=== PATIENT | male | born 1995 | race Caucasian/White ===

== ENCOUNTER 2019-11-15 18:32 | Emergency (ER) | payer OTHER, SELFPAY ==
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
[2019-11-15 18:47] VITALS: BP 116/80; PULSE 127; RESP 20; TEMP 36.1; O2SAT 97
[2019-11-15 19:32] LABS: Basophils Percent Auto 0.3 % (0.2-1.2); Eosinophils Percent Auto 0.1 % (0-4.4); Hematocrit 46.1 % (42.0-52.0); Hemoglobin 16.9 g/dL (14.0-18.0); Immature Granulocyte Absolute 0.03 K/mm3 (0.00-0.031); Immature Granulocyte Percent A 0.3 % (0-0.5); Lymphocytes Absolute Auto 0.75 K/mm3 (0.9-3.2); Lymphocytes Percent Auto 7.1 % (18.3-44.2); Mean Corpuscular HGB Conc 36.7 g/dl (32-36); Mean Corpuscular Hemoglobin 34.1 pg (26-34); Mean Corpuscular Volume 93.1 fl (80-100); Mean Platelet Volume 9.6 fl (7.4-10.4); Monocytes Absolute Auto 0.3 K/mm3 (0.1-0.6); Monocytes Percent Auto 2.5 % (2.6-8.5); Neutrophils Absolute Auto 9.4 K/mm3 (1.3-6.7); Neutrophils Percent Auto 89.7 % (45.5-73.1); Platelet Count Result 365 k/mm3 (150-375); Red Blood Count 4.95 M/mm3 (4.6-6.20); Red Cell Distribution Width 11.3 % (11.5-14.5); White Blood Count 10.5 K/mm3 (4.5-10.0)
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
[2019-11-15 19:42] LABS: Prothrombin Time 13.3 Seconds (11.1-14.7)
[2019-11-15 19:43] LABS: Partial Thromboplastin Time 27.7 SECONDS (22.3-36.8)
[2019-11-15] MEDS: FAMOTIDINE 20 MG/2 ML VIAL IV PUSH (19:43)
[2019-11-15] MEDS: SODIUM CHLORIDE 0.9% IV 1,000 ML 999 ML IV CONT (19:43)
[2019-11-15] MEDS: ONDANSETRON INJ 4 MG/2 ML VIAL IV PUSH (19:43)
[2019-11-15] MEDS: methylPREDNISolone SOD SUCC 125 MG VIAL IV PUSH (19:43)
[2019-11-15 19:44] LABS: Alanine Aminotransferase 17 U/L (4-50); Albumin Level 4.8 g/dL (3.5-5.1); Alkaline Phosphatase 70 U/L (38-126); Anion Gap 13 mmol/L (8-16); Aspartate Amino Transferase 32 U/L (17-59); Bilirubin,Total 0.7 mg/dL (0.2-1.3); Blood Urea Nitrogen 17 mg/dL (9-20); Calcium 10.1 mg/dL (8.4-10.2); Carbon Dioxide 22 mmol/L (22-30); Chloride 104 mmol/L (98-107); Estimated CRCL calculation 106 ml/min; Estimated Glomerular Filt Rate > 60; Glucose 136 mg/dL (75-110); Potassium 4.4 mmol/L (3.4-5.0); Sodium 139 mmol/L (137-145)
[2019-11-15 20:41] VITALS: BP 127/87; PULSE 112; RESP 20; O2SAT 97
[2019-11-15 21:26] VITALS: BP 118/78; PULSE 90; RESP 18; O2SAT 98
== END 2019-11-15 21:30 | disposition home or self-care (01) ==
PROVIDERS: Emergency Medicine Emergency Medical Services; Emergency Provider Emergency Medicine
DX: S16.1XXA Strain of muscle, fascia and tendon at neck level, initial encounter (principal); S29.012A Strain of muscle and tendon of back wall of thorax, initial encounter; S39.012A Strain of muscle, fascia and tendon of lower back, initial encounter; F17.200 Nicotine dependence, unspecified, uncomplicated; V48.5XXA Car driver injured in noncollision transport accident in traffic accident, initial encounter
CPT/HCPCS: 36415; 71260; 72125; 74177; 80053; 85025; 85610; 85730; 96365; 96366; 96375; 99284; J0131; J2405; J2930; J7030; Q9967

== ENCOUNTER 2019-11-17 08:05 | Emergency (ER) | payer OTHER, SELFPAY ==
--- NOTE | 2019-11-17 08:10 | ED.GENADULT ---
HPI - General Adult General Chief complaint: Unspecified Stated complaint: n/v Time Seen by Provider: 11/17/19 08:10 Source: patient and EMS Mode of arrival: EMS Limitations: no limitations History of Present Illness HPI narrative: Patient is a 24-year-old male who presents for evaluation of nausea and vomiting. Patient reports he has a longstanding history of opiate addiction, states that he has been over 24 hours without use of any opiate medications, has had chills, diaphoresis, inability to tolerate oral intake over the past 24 hours. He states he typically uses Vicodin or other prescription medication. He denies abdominal pain. He reports he feels fatigued, very nauseous. Related Data Allergies Allergy/AdvReac Type Severity Reaction Status Date / Time Cat Dander Allergy Unknown Itching Uncoded 11/17/19 09:03 Dog Dander Allergy Unknown WHEEZING, Uncoded 11/17/19 09:03 EYES WATER Review of Systems Review of Systems: Narrative: CONSTITUTIONAL: Denies fever CARDIOVASCULAR: Denies chest pain RESPIRATORY: Denies cough or dyspnea. GASTROINTESTINAL: Denies abdominal pain, reports nausea and vomiting SKIN: Denies rash MUSCULOSKELETAL: Denies back pain NEUROLOGIC: Denies headache PMFSH Past Medical History Medical History Asthma Opiate abuse, continuous Surgical History Surgical History H/O adenoidectomy Social History Social History Smoking status: Current every day smoker Alcohol intake: unknown Substance use type: opiates Gender identity (if verbalized by the patient): Male Exam Narrative: Exam Narrative: GENERAL: Awake, alert, nauseated HEAD: Normocephalic, atraumatic. EYES: PERRLA and EOMI. ENT: Nares clear, no rhinorrhea or epistaxis. Mucous membranes moist. NECK: Supple. CHEST: No respiratory distress, breathing even and non labored HEART: Regular rate, sinus rhythm ABDOMEN:Non distended, non tender, dry heaving in room, no focal abd tenderness, no RLQ tenderness EXTREMITIES: Normal range of motion. No edema. SKIN: Warm, dry, no rash. NEURO:No focal deficits. Alert and oriented x3 Course Vital Signs Vital signs: Vital Signs Temperature 36.9 C 11/17/19 08:13 Pulse Rate 73 11/17/19 08:13 Respiratory Rate 18 11/17/19 08:13 Blood Pressure 110/87 11/17/19 08:13 Pulse Oximetry 98 11/17/19 08:13 Temperature 36.9 C 11/17/19 08:13 Pulse Rate 73 11/17/19 08:13 Respiratory Rate 18 11/17/19 08:13 Blood Pressure 110/87 11/17/19 08:13 Pulse Oximetry 98 11/17/19 08:13 Medical Decision Making MDM Narrative Medical decision making narrative: Patient presented for evaluation of withdrawal type symptoms including nausea and vomiting. At the time of initial assessment, ABCs are intact and vital signs are stable. Patient is denying any pain. Laboratory results are notable for leukocytosis which can often be seen with leukemoid reaction, stress like reaction from recurrent vomiting. Patient has no severe electrolyte derangement. He has a very borderline hypokalemia. No elevation in transaminases or hyperbilirubinemia. Patient does not have any clinical signs or symptoms of appendicitis, cholecystitis. No UTI. Patient was given IV fluids, was able to tolerate some potassium and ice chips. Pt again had no abd pain, guarding, tenderness at time of reassessment. I doubt acute intraabdominal infection given no findings to suggest that clinically. He was then discharged as he has arranged to go to an outpatient detox facility. Differential Diagnosis Differential Diagnosis: Cyclical vomiting, dehydration, electrolyte abnormality, appendicitis, bowel obstruction Vital Signs Vital Signs: Vital Signs Temperature 36.9 C 11/17/19 08:13 Pulse Rate 73 11/17/19 08:13 Respiratory Rate 18 11/17/19 08:13 Blood P
[2019-11-17 08:13] VITALS: BP 110/87; PULSE 73; RESP 18; TEMP 36.9; O2SAT 98
[2019-11-17] MEDS: ONDANSETRON INJ 4 MG/2 ML VIAL IV PUSH (08:19)
[2019-11-17] MEDS: SODIUM CHLORIDE 0.9% IV 1,000 ML 999 ML IV CONT (08:19)
[2019-11-17 08:31] LABS: Hemoglobin 16.7 g/dL (14.0-18.0); Mean Corpuscular HGB Conc 36.3 g/dl (32-36); Mean Corpuscular Hemoglobin 33.5 pg (26-34); Mean Corpuscular Volume 92.2 fl (80-100); Mean Platelet Volume 9.4 fl (7.4-10.4); Platelet Count Result 461 k/mm3 (150-375); Red Blood Count 4.99 M/mm3 (4.6-6.20); Red Cell Distribution Width 11.1 % (11.5-14.5); White Blood Count 28.5 K/mm3 (4.5-10.0)
[2019-11-17 08:37] LABS: Band Neutrophils Percent 1 % (0-6); Lymphocytes Absolute Manual 1.71 K/mm3 (1.1-4.5); Monocytes Absolute Manual 1.14 K/mm3 (0.1-0.90); Monocytes Percent Manual 4 % (3-9); Neutrophils Absolute Manual 25.65 K/mm3 (1.3-6.7); Neutrophils Percent Manual 89 % (46-73); Total Cells Counted 100
[2019-11-17 08:38] LABS: Add Urine Microscopic? YES; Appearance Urine Clear (Clear); Bacteria Urine Trace /hpf; Bilirubin Urine Negative (Negative); Blood Urine Negative (Negative); Color Urine Yellow (Yellow); Glucose Urine UA Negative (Negative); Ketones Urine 1+ mg/dL (Negative); Leukocyte Esterase Ur Negative LEU/UL (Negative); Mucus Urine Rare /lpf; Nitrate Urine Negative (Negative); Protein Urine 1+ mg/dL (Negative); Urobilinogen Urine Negative mg/dL (<2.0); WBC Urine 0-3 /hpf
[2019-11-17 08:38] LABS: Platelet Estimate Increased (Adequate)
[2019-11-17 08:39] LABS: Specific Grav Ur 1.038 (1.001-1.035)
[2019-11-17 08:42] LABS: Potassium 3.3 mmol/L (3.4-5.0)
[2019-11-17 08:46] LABS: Alanine Aminotransferase 37 U/L (4-50); Albumin Level 4.5 g/dL (3.5-5.1); Alkaline Phosphatase 63 U/L (38-126); Anion Gap 11 mmol/L (8-16); Aspartate Amino Transferase 37 U/L (17-59); Bilirubin,Total 0.8 mg/dL (0.2-1.3); Blood Urea Nitrogen 28 mg/dL (9-20); Calcium 9.2 mg/dL (8.4-10.2); Carbon Dioxide 29 mmol/L (22-30); Chloride 97 mmol/L (98-107); Estimated CRCL calculation 120 ml/min; Estimated Glomerular Filt Rate > 60; Glucose 129 mg/dL (75-110); Lipase 229 U/L (23-300); Sodium 137 mmol/L (137-145)
[2019-11-17] MEDS: POTASSIUM CHLORIDE 20 MEQ PACKET (FOR LIQUID) PO (09:56)
== END 2019-11-17 10:14 | disposition home or self-care (01) ==
PROVIDERS: Emergency Provider Emergency Medicine
DX: F11.23 Opioid dependence with withdrawal (principal); R11.2 Nausea with vomiting, unspecified; J45.909 Unspecified asthma, uncomplicated; F17.200 Nicotine dependence, unspecified, uncomplicated
CPT/HCPCS: 36415; 80053; 81001; 83690; 85025; 96361; 96374; 96375; 99284; A9270; J2060; J2405; J7030

== ENCOUNTER 2020-02-08 11:27 | Emergency (ER) | payer OTHER, SELFPAY ==
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
[2020-02-08 11:30] VITALS: BP 142/80; PULSE 123; RESP 22; TEMP 37.2; O2SAT 100
--- NOTE | 2020-02-08 11:39 | ECG_ITS ---
Measurements Intervals [place] Rate: 93 P: 56 NM: 122 QRS: 47 QRSD: 101 T: 59 QT: 364 QTc: 454 Interpretive Statements SINUS RHYTHM WITH MARKED SINUS ARRHYTHMIA MINIMAL Q WAVES- ANTEROLAT/INF LEADS BASELINE ARTIFACT- I, AVR, AVL, V1-V2 BORDERLINE ECG Electronically Signed On 02-08-2020 14:17:34 LABOR SPECIALIST by Donald Noonan D.O.
[2020-02-08] MEDS: diphenhydrAMINE HCl INJ 50 MG/ML VIAL 25 MG IV PUSH (11:51)
[2020-02-08] MEDS: methylPREDNISolone SOD SUCC 125 MG VIAL IV PUSH (11:51)
--- NOTE | 2020-02-08 11:51 | PC.NURSE ---
got blood 1150
[2020-02-08 11:56] LABS: Basophils Percent Auto 0.4 % (0.2-1.2); Eosinophils Absolute Auto 0.2 K/mm3 (0-0.3); Eosinophils Percent Auto 1.9 % (0-4.4); Hematocrit 46.4 % (42.0-52.0); Hemoglobin 16.6 g/dL (14.0-18.0); Immature Granulocyte Absolute 0.02 K/mm3 (0.00-0.031); Immature Granulocyte Percent A 0.2 % (0-0.5); Lymphocytes Absolute Auto 0.96 K/mm3 (0.9-3.2); Lymphocytes Percent Auto 9.9 % (18.3-44.2); Mean Corpuscular HGB Conc 35.8 g/dl (32-36); Mean Corpuscular Hemoglobin 33.2 pg (26-34); Mean Corpuscular Volume 92.8 fl (80-100); Mean Platelet Volume 9.4 fl (7.4-10.4); Monocytes Absolute Auto 0.4 K/mm3 (0.1-0.6); Monocytes Percent Auto 4.1 % (2.6-8.5); Neutrophils Absolute Auto 8.1 K/mm3 (1.3-6.7); Neutrophils Percent Auto 83.5 % (45.5-73.1); Platelet Count Result 270 k/mm3 (150-375); White Blood Count 9.7 K/mm3 (4.5-10.0)
[2020-02-08 12:09] LABS: Alanine Aminotransferase 16 U/L (4-50); Albumin Level 4.7 g/dL (3.5-5.1); Alkaline Phosphatase 71 U/L (38-126); Anion Gap 10 mmol/L (8-16); Aspartate Amino Transferase 31 U/L (17-59); Bilirubin,Total 0.9 mg/dL (0.2-1.3); Blood Urea Nitrogen 14 mg/dL (9-20); Calcium 9.6 mg/dL (8.4-10.2); Carbon Dioxide 25 mmol/L (22-30); Chloride 102 mmol/L (98-107); D Dimer 0.46 ug/mL (<0.48); Estimated CRCL calculation 150 ml/min; Estimated Glomerular Filt Rate > 60; Glucose 112 mg/dL (75-110); Potassium 4.4 mmol/L (3.4-5.0); Sodium 137 mmol/L (137-145)
[2020-02-08 12:10] VITALS: PULSE 96; RESP 16; O2SAT 95
[2020-02-08 12:19] VITALS: PULSE 93; RESP 17; O2SAT 93
[2020-02-08 12:20] LABS: Troponin I < 0.012 ng/mL (0.000-0.034)
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
[2020-02-08 12:30] VITALS: PULSE 95; RESP 17; O2SAT 93
[2020-02-08 12:48] VITALS: PULSE 120; RESP 11; O2SAT 94
== END 2020-02-08 13:14 | disposition home or self-care (01) ==
PROVIDERS: Physician Assistant; Emergency Provider General Practice; Referring Provider Emergency Medicine
DX: J45.901 Unspecified asthma with (acute) exacerbation (principal); F41.9 Anxiety disorder, unspecified; F17.200 Nicotine dependence, unspecified, uncomplicated; R94.31 Abnormal electrocardiogram [ECG] [EKG]
CPT/HCPCS: 36415; 71045; 80053; 84484; 85025; 85380; 93005; 96374; 96375; 99284; J1200; J2930